=== PATIENT | male | born 1950 | race Caucasian/White ===

== ENCOUNTER 2021-01-16 11:48 | Outpatient (CLI) | payer MEDICARE ==
[2021-01-16] MEDS ORDERED: CHOL10003 PO (12:56)
[2021-01-16] MEDS ORDERED: [UNRECOGNIZED DRUG - OTHER] PO (12:56)
[2021-01-16] MEDS ORDERED: FLUT9.9S NS (12:56)
[2021-01-16] MEDS ORDERED: alpha lipoic acid PO (12:56)
[2021-01-16] MEDS ORDERED: CALC-126 PO (12:56)
[2021-01-16] MEDS ORDERED: milk thistle PO (12:56)
[2021-01-16] MEDS ORDERED: VITA1TAB85 PO (12:56)
[2021-01-16] MEDS ORDERED: ALBU90AE INH (12:56)
[2021-01-16 13:31] LABS: BASOPHILS % (AUTO) 0 % (0-1); EOSINOPHILS % (AUTO) 1 % (1-7); LYMPHOCYTES % (AUTO) 20 % (22-44); MEAN CORPUSCULAR HEMOGLOBIN 31.3 pg (27.5-34.5); MEAN CORPUSCULAR HGB CONC 33.9 g/dL (33.2-36.2); MEAN PLATELET VOLUME 7.7 fL (7.4-10.4); MONOCYTES % (AUTO) 10 % (2-9); NEUTROPHILS % (AUTO) 70 % (42-75); PLATELET COUNT 161 x10^3/uL (130-400); RED BLOOD COUNT 5.26 x10^6/uL (4.38-5.82); RED CELL DISTRIBUTION WIDTH 13.3 % (9.4-14.8)
[2021-01-16 13:34] LABS: ANION GAP 4 mmol/L (5-15); CHLORIDE 106 mmol/L (98-107); CREATININE 0.75 mg/dL (0.7-1.3)
[2021-01-16 13:35] LABS: INTERNATIONAL NORMALIZED RATIO 1.03 (0.93-1.1); MD NO
[2021-01-16 13:45] LABS: MICROSCOPIC NOT IND
== END 2021-01-16 23:59 | disposition home or self-care (01) ==
LOC: STAR 11:48
PROVIDERS: ATTEND Urology
DX: Z01.812 Encounter for preprocedural laboratory examination (principal); Z20.822 Contact with and (suspected) exposure to COVID-19; N13.30 Unspecified hydronephrosis; R94.31 Abnormal electrocardiogram [ECG] [EKG]; I25.2 Old myocardial infarction
CPT/HCPCS: 36415; 80048; 81003; 85025; 85610; 87086; 93005; U0003

== ENCOUNTER 2021-01-22 13:02 | Day surgery (SDC) | payer MEDICARE ==
[~2021-01-22] VITALS: Ht 182.9 cm; Wt 86.1 kg
[~2021-01-22 13:02] MED LIST: ALBU90AE INH; CALC-126 PO; CHOL10003 PO; FLUT9.9S NS; VITA1TAB85 PO; [UNRECOGNIZED DRUG - OTHER] PO; alpha lipoic acid PO; milk thistle PO
[2021-01-22] MEDS ORDERED: DIPH25CA61 PO (13:25)
[2021-01-22] MEDS ORDERED: LACTATED RINGERS 1,000 ML IV SCH (13:30)
[2021-01-22] MEDS ORDERED: CHLORHEXIDINE 15 ML UDC PO ONE (13:30)
[2021-01-22] MEDS ORDERED: MIDAZOLAM 1 MG/ML, 2ML ONE (14:53)
[2021-01-22] MEDS ORDERED: FENTANYL PF 100 MCG/2ML ONE (14:54)
[2021-01-22] MEDS ORDERED: PROPOFOL 10 MG/ML, 20ML ONE (15:36)
[2021-01-22] MEDS ORDERED: CEFAZOLIN 1,000 MG ONE (15:36)
[2021-01-22] MEDS ORDERED: OMNIPAQUE 350 MG/ML, 50 ML BOTTLE IV ONE (15:50)
[2021-01-22] MEDS ORDERED: FENTANYL PF 100 MCG/2ML IV PRN (16:00)
[2021-01-22] MEDS ORDERED: HYDROmorphone 1 MG/ML, 1ML INJ IVPush PRN (16:00)
[2021-01-22] MEDS ORDERED: PROMETHAZINE 25 MG/ML, 1ML IVPush PRN (16:00)
[2021-01-22] MEDS ORDERED: OXYcodone 5 MG/5 ML ORAL.SOL UDC PO PRN (16:00)
[2021-01-22] MEDS ORDERED: ONDANSETRON 2MG/ML, 2ML IVPush PRN (16:00)
[2021-01-22] MEDS ORDERED: HYDROcodone/APAP 7.5-325MG/15ML UDC PO PRN (16:00)
[2021-01-22] MEDS ORDERED: MEPERIDINE/PF 25MG/0.5ML IVPush PRN (16:00)
[2021-01-22] MEDS ORDERED: PHENAZOPYRIDINE 200 MG TABLET PO ONE (16:30)
[2021-01-22] MEDS ORDERED: PHENAZOPYRIDINE 200 MG TABLET ONE (16:30)
[2021-01-22] MEDS ORDERED: OMNIPAQUE 350 MG/ML, 50 ML BOTTLE ONE (17:40)
== END 2021-01-22 17:39 | disposition home or self-care (01) ==
LOC: OUT 13:02
PROVIDERS: ATTEND Urology
DX: C61 Malignant neoplasm of prostate (principal); N13.30 Unspecified hydronephrosis; N30.40 Irradiation cystitis without hematuria; Z88.0 Allergy status to penicillin; Z79.899 Other long term (current) drug therapy; Z87.891 Personal history of nicotine dependence; Z98.890 Other specified postprocedural states; Z72.89 Other problems related to lifestyle
CPT/HCPCS: 52332; 74420; C1758; C1769; C2617; J0690; J2250; J2704; J3010; J7120; Q9967; 76000